=== PATIENT | male | born 1975 | race Caucasian/White ===

== ENCOUNTER → 2019-06-28 | Outpatient (CLI) | payer OTHER ==
--- NOTE | 2019-06-28 17:10 | Diagnostic Imaging Report ---
EXAMINATION: CHEST 2 VIEWS INDICATION: Physical exam screening COMPARISON: None FINDINGS: LINES/TUBES:None LUNGS:The lungs are well-inflated. No focal consolidation or pulmonary edema. PLEURA:No pleural effusion or pneumothorax. MEDIASTINUM:The cardiomediastinal silhouette appears normal in size and shape. BONES/SOFT TISSUES:No acute osseous injury. ABDOMEN:No free air under the diaphragm. IMPRESSION: No focal pneumonia or pulmonary edema. Signed by: Curry Murray MD on 06/28/2019 5:06 PM
== END ==
LOC: RAD 16:03
PROVIDERS: ATTEND Internal Medicine
DX: Z00.00 Encounter for general adult medical examination without abnormal findings (principal)
CPT/HCPCS: 71046

== ENCOUNTER 2024-09-27 23:50 | Emergency (ER) | payer OTHER ==
[~2024-09-27] VITALS: Ht 177.8 cm; Wt 108.9 kg
[2024-09-27 23:50] VITALS: TEMP 97.5
[2024-09-28] MEDS ORDERED: NITROGLYCERIN 0.4 MG SUBL ONE (00:18)
[2024-09-28] MEDS: NITROGLYCERIN 0.4 MG SUBL SL ONE (00:26)
[2024-09-28] MEDS: MECLIZINE HCL 12.5 MG TAB PO ONE (00:38)
[2024-09-28] MEDS: ASPIRIN 325 MG TAB PO ONE (00:38)
[2024-09-28] MEDS ORDERED: ONDANSETRON HCL INJ 2MG/ML 2ML 2 MG/ML VIAL IV PRN (01:15)
[2024-09-28] MEDS ORDERED: Morphine 4mg INJECTION 4 MG/ML INJ IV PRN (01:15)
[2024-09-28] MEDS ORDERED: SODIUM CHLORIDE 0.9% 1000ML 1,000 ML IV SCH (01:30)
[2024-09-28 01:58] VITALS: PULSE 61; RESP 18
[2024-09-28 01:59] VITALS: BP 118/66; PULSE 61; RESP 18; TEMP 98.4; O2SAT 95
[2024-09-28] MEDS ORDERED: MECLIZINE HCL25 MG PO (16:04)
== END 2024-09-28 02:08 | disposition home or self-care (01) ==
LOC: FSED 09-28 00:22 → ERHOLD 09-28 01:18 → UNDOADMOB 09-28 01:18 → FSED 09-28 02:08
DX: R42 Dizziness and giddiness (principal); R07.89 Other chest pain; R11.0 Nausea; I10 Essential (primary) hypertension; E78.5 Hyperlipidemia, unspecified; R94.31 Abnormal electrocardiogram [ECG] [EKG]
CPT/HCPCS: 71046; 80048; 84484; 85025; 93005; 99283; J8597

== ENCOUNTER 2024-09-28 14:30 | Emergency (ER) | payer OTHER ==
[~2024-09-28] VITALS: Ht 177.8 cm; Wt 108.9 kg
[2024-09-28 14:41] VITALS: PULSE 60; RESP 15; TEMP 98.4
[2024-09-28 15:11] LABS: BASOPHILS % 0.4 % (0.0-1.0); EOSINOPHILS # (AUTO) 0.1 (0.0-0.4); EOSINOPHILS % 1.4 % (0.0-6.0); HEMOGLOBIN 14.5 g/dL (14.0-18.0); LYMPHOCYTES # (AUTO) 2.3 (1.0-3.2); LYMPHOCYTES % 28.6 % (18.0-39.1); MEAN CORPUSCULAR HEMOGLOBIN 30.8 pg (28-32); MEAN CORPUSCULAR HGB CONC 33.7 g/dL (31-35); MEAN CORPUSCULAR VOLUME 91.3 fL (81-99); MONOCYTES # (AUTO) 0.7 (0.2-0.8); NEUTROPHILS # (AUTO) 4.8 (2.1-6.9); NEUTROPHILS % 60.1 % (38.7-80.0); PLATELET COUNT 305 x10e3/uL (140-360); RED BLOOD COUNT 4.71 x10e6/uL (4.3-5.7); WHITE BLOOD COUNT 7.91 x10e3/uL (4.8-10.8)
[2024-09-28 15:36] LABS: ALBUMIN 4.9 g/dL (3.5-5.0); ALBUMIN/GLOBULIN RATIO 1.7 (0.8-2.0); ANION GAP 17.2 mmol/L (8-16); BILIRUBIN,TOTAL 0.5 mg/dL (0.2-1.2); CREATININE, SERUM 0.82 mg/dL (0.72-1.25); POTASSIUM 4.2 mmol/L (3.5-5.1); TOTAL PROTEIN 7.8 g/dL (6.5-8.1)
[2024-09-28] MEDS ORDERED: MECLIZINE HCL25 MG PO (16:04)
[2024-09-28] MEDS: MECLIZINE HCL 12.5 MG TAB PO ONE (16:40)
[2024-09-28] MEDS: DEXAMETHASONE 4 MG TAB PO STA (16:41)
[2024-09-28 17:41] VITALS: BP 129/84; PULSE 76; RESP 18; TEMP 98.3; O2SAT 98
== END 2024-09-28 16:41 | disposition home or self-care (01) ==
LOC: ER 15:10
DX: I10 Essential (primary) hypertension (principal); I50.9 Heart failure, unspecified; E78.00 Pure hypercholesterolemia, unspecified; G47.30 Sleep apnea, unspecified; F32.A Depression, unspecified; F90.9 Attention-deficit hyperactivity disorder, unspecified type
CPT/HCPCS: 36415; 70450; 71045; 80053; 84484; 85025; 93005; 99283; J8540; J8597

== ENCOUNTER 2025-04-21 18:53 | Emergency (ER) | payer OTHER ==
[~2025-04-21] VITALS: Ht 177.8 cm; Wt 101.6 kg
[~2025-04-21 18:53] MED LIST: MECLIZINE HCL25 MG PO
[2025-04-21 18:57] VITALS: PULSE 64; RESP 18; TEMP 98.4
[2025-04-21 19:30] VITALS: BP 135/71; PULSE 64; RESP 16; TEMP 98.4; O2SAT 99
== END 2025-04-21 19:33 | disposition home or self-care (01) ==
LOC: FSED 18:56
DX: S61.211A Laceration without foreign body of left index finger without damage to nail, initial encounter (principal); W26.0XXA Contact with knife, initial encounter; Y93.G3 Activity, cooking and baking; I10 Essential (primary) hypertension; E78.5 Hyperlipidemia, unspecified; F32.A Depression, unspecified
CPT/HCPCS: 99283